=== PATIENT | male | born 1980 | race Caucasian/White ===

== ENCOUNTER 2023-05-26 12:13 | Emergency (ER) | payer OTHER, SELFPAY ==
[2023-05-26 12:16] VITALS: BP 130/84; PULSE 83; RESP 14; TEMP 36.9; O2SAT 99
--- NOTE | 2023-05-26 12:47 | ED.PSYCH ---
HPI - Psych <Monique Chatman, DO - Last Filed: 05/28/23 09:24> General Chief Complaint: Psychiatric Symptoms Stated Complaint: bipolar / norberto Time Seen by Provider: 05/26/23 12:47 Source: patient and EMS Mode of arrival: EMS History of Present Illness HPI Narrative: This is a 43-year-old male with reported history of bipolar schizophrenia who has been on medications in the past as recently come to the area with his sister to visit family. He reportedly has had multiple hospitalizations most recently 3-4 weeks ago in [facility]. Patient states he does have a mental health history, he does not feel like it is his mental health that is causing his symptoms today. He denies any active hallucinations, auditory or visual, he denies any thoughts of harming himself or others, he denies any thoughts of killing himself or anyone else. Patient states that he is not sure about what is happening in reality at the moment. He sort of his intermittently smiling and then seems sad but not actively crying. Patient denies any tobacco, occasional alcohol denying any illicit substances currently. Medics were called by sister as he has been acting similar to when he has had mental health issues in the past. Patient is was seen with law enforcement and paramedics locally initially did not wish to transport but ultimately did choose to present. He states that he does not feel like he is requiring any new medication currently. He is denying take any medication right now. He does not feel he is requiring hospitalization currently. Related Data Home Medications Medication Instructions Recorded Confirmed dextroamphetamine-amphetamine ER 1 cap PO BID 05/26/23 05/26/23 30 mg 24hr capsule,extend release (Adderall XR) hydroxyzine pamoate 50 mg capsule 50 mg PO Q6HR PRN Anxiety 05/26/23 05/26/23 lithium carbonate 300 mg capsule 300 mg PO QAM 05/26/23 05/26/23 lithium carbonate 300 mg capsule 450 mg PO BEDTIME 05/26/23 05/26/23 quetiapine 25 mg tablet 25 mg PO BEDTIME 05/26/23 05/26/23 risperidone 4 mg tablet 4 mg PO BEDTIME 05/26/23 05/26/23 trazodone 150 mg tablet 150 mg PO BEDTIME 05/26/23 05/26/23 Allergies Allergy/AdvReac Type Severity Reaction Status Date / Time No Known Drug Allergies Allergy Verified 05/26/23 12:19 Review of Systems <Monique Chatman DO - Last Filed: 05/28/23 09:24> Review of Systems ROS Unobtainable: All systems reviewed & are unremarkable except as noted in HPI and below Patient History <Monique Chatman DO - Last Filed: 05/28/23 09:24> Social History Smoking Status: Unknown if ever smoked Smoking Status: Unknown if ever smoked alcohol intake frequency: 0-2 drinks per day Substance Use Type: unknown Exam <Monique Chatman DO - Last Filed: 05/28/23 09:24> Narrative Exam Narrative: GENERAL: Alert and oriented x three, male in mild distress. Slightly disheveled but clean. HEENT: Head normocephalic, atraumatic, EOMI, pupils reactive, face symmetric, moist mucous membranes NECK: Supple, full range of motion CARDIOVASCULAR: Regular rate and rhythm without murmurs, rubs or gallops. RESPIRATORY: Breath sounds equal bilaterally, no wheezes rales or rhonchi. ABDOMEN: Soft, nontender. Normoactive bowel sounds all 4 quadrants. No guarding or rebound, rigidity, no mass : No CVA tenderness EXTREMITIES: Normal range of motion, no clubbing or edema. Neurovascularly intact NEUROLOGICAL: Cranial nerves II through XII grossly intact. Moving all extremities SKIN: Warm, dry, no petechiae, no rashes or lesions. PSYCH: Patient admits to reality seeming off or altered, denies any active hallucinations denies any thoughts of harming himself or others, new suicidal or homicidal ideation or intent. Initial Vital Signs Initial Vital Signs: Vital Signs Temperature 98.5 F 05/26/23 12:16 Pulse Rate 83 05/26/23 12:16 Respiratory Rate 14 05/26/23 12:16 Blood Pressure 130/84 05/26/23 12:16 Pulse Oximetry 99 05/26/23 12:16 Oxygen Delivery Method Room Air 05/26/23 12:16 <Miguel Angel Key DO - Last Filed: 05/27/23 21:05> Initial Vital Signs Initial Vital Signs: Vital Signs Temperature 98.5 F 05/26/23 12:16 Pulse Rate 83 05/26/23 12:16 Respiratory Rate 14 05/26/23 12:16 Blood Pressure 130/84 05/26/23 12:16 Pulse Oximetry 99 05/26/23 12:16 Oxygen Delivery Method Room Air 05/26/23 12:16 Course <Monique Chatman DO - Last Filed: 05/28/23 09:24> Orders Ordered: Discontinued Medications Olanzapine (Olanzapine Odt 10 Mg Tab) 10 mg PO NOW ONE Stop: 05/27/23 17:20 Last Admin: 05/27/23 17:33 Dose: 10 mg Documented By: MLM Vital Signs Vital signs: Vital Signs - 8 hr 05/27/23 18:35 Pulse Rate 86 Respiratory Rate 18 Blood Pressure 131/81 Pulse Oximetry 99 Oxygen Delivery Method Room Air <Miguel Angel Key, DO - Last Filed: 05/27/23 21:05> Orders Ordered: Discontinued Medications Olanzapine (Olanzapine Odt 10 Mg Tab) 10 mg PO NOW ONE Stop: 05/27/23 17:20 Last Admin: 05/27/23 17:33 Dose: 10 mg Documented By: MLM Vital Signs Vital signs: Vital Signs - 8 hr 05/27/23 18:35 Pulse Rate 86 Respiratory Rate 18 Blood Pressure 131/81 Pulse Oximetry 99 Oxygen Delivery Method Room Air MDM - Psych <Monique Chatman, DO - Last Filed: 05/28/23 09:24> Lab Data 05/26/23 12:40 05/26/23 12:40 Labs: Lab Results 05/26/23 05/26/23 05/26/23 Range/Units 12:40 12:40 12:40 WBC 5.1 (4.5-11.0) X10^3/uL RBC 4.65 (4.5-5.9) X10^6/uL Hgb 14.1 (13.5-17.5) g/dL Hct 40.7 L (41-53) % MCV 87.6 (80-100) fL MCH 30.3 (26-34) PG MCHC 34.6 (30-36) % RDW 12.8 (11.6-14.8) % Plt Count 425 H (150-400) X10^3/uL Neut % (Auto) 56.5 (50-75) % Lymph % (Auto) 29.8 (25-40) % [place] % (Auto) 11.2 (3-14) % Eos % (Auto) 1.7 L (2-4) % Baso % (Auto) 0.8 (0-2) % Neut # (Auto) 2900 (8729-8726) /uL Lymph # (Auto) 1500 (2248-1081) /uL [place] # (Auto) 600 (0-900) /uL Eos # (Auto) 100 (0-450) /uL Baso # (Auto) 0 (0-100) /uL Sodium 137 (137-145) mmol/L Potassium 4.0 (3.4-5.1) mmol/L Chloride 103 (98-107) mmol/L Carbon Dioxide 22 (22-32) mmol/L BUN 13 (9-20) mg/dL Creatinine 1.07 (0.66-1.25) mg/dL Estimated GFR > 60 (>60) mL/min BUN/Creatinine Ratio 12.1 (6-22) Glucose 104 H (70-100) mg/dL Calcium 9.1 (8.4-10.2) mg/dL Magnesium (1.6-2.3) mg/dL Total Bilirubin 1.0 (0.2-1.3) mg/dL AST 27 (17-59) IU/L ALT 23 (<50) IU/L Alkaline Phosphatase 75 (38-126) U/L Total Protein 7.1 (6.3-8.2) g/dL Albumin 4.4 (3.5-5.0) g/dL Globulin 2.7 (1.7-4.1) g/dL Albumin/Globulin Ratio 1.6 (1.0-2.8) TSH 0.882 (0.47-4.68) uIU/mL Free T4 1.97 (0.78-2.19) ng/dL Urine Color Urine Appearance Urine pH (4.5-8.0) Ur Specific [place] (1.000-1.035) Urine Protein (Negative) Urine Glucose (UA) (Negative) g/dL Urine Ketones (NEGATIVE) Urine Occult Blood (Negative) Urine Nitrate (Negative) Urine Bilirubin (NEGATIVE) Ur Bilirubin Confirm (Negative) Urine Urobilinogen (0.2) E.U./dL Ur Leukocyte Esterase (NEGATIVE) Urine RBC (0-5/HPF) Urine WBC (0-5/HPF) Ur Squamous Epith Cells (0-5/HPF) Calcium Oxalate Crystal Urine Bacteria (None) Urine Mucus (Negative) Ur Culture Indicated? Salicylates < 1.0 (<20) mg/dL U Opiates 300ng/mL cut (Negative) Ur Oxycodone Screen (Negative) Urine Methadone Screen (Negative) Acetaminophen < 10 (10-30) ug/mL Ur Barbiturates Screen (Negative) U Tricyclic Antidepress (Negative) Ur Phencyclidine Scrn (Negative) Ur Amphetamines Screen (Negative) U Methamphetamines Scrn (Negative) Ur MDMA Scrn (Ecstasy) (Negative) U Benzodiazepines Scrn (Negative) [place] < 0.2 L (0.6-1.2) mmol/L Urine Cocaine Screen (Negative) U Marijuana (THC) Screen (Negative) Ethyl Alcohol < 10 ( - 10) mg/dL SARS-CoV-2 (PCR) (Negative) 05/26/23 05/26/23 05/26/23 Range/Units 12:40 12:42 17:42 WBC (4.5-11.0) X10^3/uL RBC (4.5-5.9) X10^6/uL Hgb (13.5-17.5) g/dL Hct (41-53) % MCV (80-100) fL MCH (26-34) PG MCHC (30-36) % RDW (11.6-14.8) % Plt Count (150-400) X10^3/uL Neut % (Auto) (50-75) % Lymph % (Auto) (25-40) % [place] % (Auto) (3-14) % Eos % (Auto) (2-4) % Baso % (Auto) (0-2) % Neut # (Auto) (2941-2309) /uL Lymph # (Auto) (0887-7325) /uL [place] # (Auto) (0-900) /uL Eos # (Auto) (0-450) /uL Baso # (Auto) (0-100) /uL Sodium (137-145) mmol/L Potassium (3.4-5.1) mmol/L Chloride (98-107) mmol/L Carbon Dioxide (22-32) mmol/L BUN (9-20) mg/dL Creatinine (0.66-1.25) mg/dL Estimated GFR (>60) mL/min BUN/Creatinine Ratio (6-22) Glucose (70-100) mg/dL Calcium (8.4-10.2) mg/dL Magnesium 2.3 (1.6-2.3) mg/dL Total Bilirubin (0.2-1.3) mg/dL AST (17-59) IU/L ALT (<50) IU/L Alkaline Phosphatase (38-126) U/L Total Protein (6.3-8.2) g/dL Albumin (3.5-5.0) g/dL Globulin (1.7-4.1) g/dL Albumin/Globulin Ratio (1.0-2.8) TSH (0.47-4.68) uIU/mL Free T4 (0.78-2.19) ng/dL Urine Color Urine Appearance Urine pH (4.5-8.0) Ur Specific [place] (1.000-1.035) Urine Protein (Negative) Urine Glucose (UA) (Negative) g/dL Urine Ketones (NEGATIVE) Urine Occult Blood (Negative) Urine Nitrate (Negative) Urine Bilirubin (NEGATIVE) Ur Bilirubin Confirm (Negative) Urine Urobilinogen (0.2) E.U./dL Ur Leukocyte Esterase (NEGATIVE) Urine RBC (0-5/HPF) Urine WBC (0-5/HPF) Ur Squamous Epith Cells (0-5/HPF) Calcium Oxalate Crystal Urine Bacteria (None) Urine Mucus (Negative) Ur Culture Indicated? Salicylates (<20) mg/dL U Opiates 300ng/mL cut Negative (Negative) Ur Oxycodone Screen Negative (Negative) Urine Methadone Screen Negative (Negative) Acetaminophen (10-30) ug/mL Ur Barbiturates Screen Negative (Negative) U Tricyclic Antidepress Negative (Negative) Ur Phencyclidine Scrn Negative (Negative) Ur Amphetamines Screen Positive H (Negative) U Methamphetamines Scrn Negative (Negative) Ur MDMA Scrn (Ecstasy) Negative (Negative) U Benzodiazepines Scrn Negative (Negative) [place] (0.6-1.2) mmol/L Urine Cocaine Screen Negative (Negative) U Marijuana (THC) Screen Negative (Negative) Ethyl Alcohol ( - 10) mg/dL SARS-CoV-2 (PCR) Negative (Negative) 05/26/23 Range/Units 17:42 WBC (4.5-11.0) X10^3/uL RBC (4.5-5.9) X10^6/uL Hgb (13.5-17.5) g/dL Hct (41-53) % MCV (80-100) fL MCH (26-34) PG MCHC (30-36) % RDW (11.6-14.8) % Plt Count (150-400) X10^3/uL Neut % (Auto) (50-75) % Lymph % (Auto) (25-40) % [place] % (Auto) (3-14) % Eos % (Auto) (2-4) % Baso % (Auto) (0-2) % Neut # (Auto) (9458-9274) /uL Lymph # (Auto) (4096-5690) /uL [place] # (Auto) (0-900) /uL Eos # (Auto) (0-450) /uL Baso # (Auto) (0-100) /uL Sodium (137-145) mmol/L Potassium (3.4-5.1) mmol/L Chloride (98-107) mmol/L Carbon Dioxide (22-32) mmol/L BUN (9-20) mg/dL Creatinine (0.66-1.25) mg/dL Estimated GFR (>60) mL/min BUN/Creatinine Ratio (6-22) Glucose (70-100) mg/dL Calcium (8.4-10.2) mg/dL Magnesium (1.6-2.3) mg/dL Total Bilirubin (0.2-1.3) mg/dL AST (17-59) IU/L ALT (<50) IU/L Alkaline Phosphatase (38-126) U/L Total Protein (6.3-8.2) g/dL Albumin (3.5-5.0) g/dL Globulin (1.7-4.1) g/dL Albumin/Globulin Ratio (1.0-2.8) TSH (0.47-4.68) uIU/mL Free T4 (0.78-2.19) ng/dL Urine Color Yellow Urine Appearance Clear Urine pH 6.0 (4.5-8.0) Ur Specific [place] 1.025 (1.000-1.035) Urine Protein Trace H (Negative) Urine Glucose (UA) Negative (Negative) g/dL Urine Ketones 2+ H (NEGATIVE) Urine Occult Blood Negative (Negative) Urine Nitrate Negative (Negative) Urine Bilirubin 2+ H (NEGATIVE) Ur Bilirubin Confirm Negative (Negative) Urine Urobilinogen 2.0 H (0.2) E.U./dL Ur Leukocyte Esterase Negative (NEGATIVE) Urine RBC None seen (0-5/HPF) Urine WBC None seen (0-5/HPF) Ur Squamous Epith Cells None seen (0-5/HPF) Calcium Oxalate Crystal Few H Urine Bacteria None seen (None) Urine Mucus 1+ H (Negative) Ur Culture Indicated? Cult not indicated Salicylates (<20) mg/dL U Opiates 300ng/mL cut (Negative) Ur Oxycodone Screen (Negative) Urine Methadone Screen (Negative) Acetaminophen (10-30) ug/mL Ur Barbiturates Screen (Negative) U Tricyclic Antidepress (Negative) Ur Phencyclidine Scrn (Negative) Ur Amphetamines Screen (Negative) U Methamphetamines Scrn (Negative) Ur MDMA Scrn (Ecstasy) (Negative) U Benzodiazepines Scrn (Negative) [place] (0.6-1.2) mmol/L Urine Cocaine Screen (Negative) U Marijuana (THC) Screen (Negative) Ethyl Alcohol ( - 10) mg/dL SARS-CoV-2 (PCR) (Negative) MDM Narrative Medical decision making narrative: Patient's labs show no acute changes or cause for his symptoms beyond his reported psychiatric history. Patient has not given urine sample yet. He has been sleeping in the department during his stay. No suicidal or homicidal ideation but question about whether patient's gravely disabled. Patient sister has been in touch regarding symptoms. No TO performed by law enforcement. Patient came voluntarily with EMS. Patient signed out to Dr. Key for re-evaluation and final disposition. Dr key: Received turned over. Review patient's history and physical and workup up to this point. The patient is medically cleared. Patient has been calm all night. Has been sleeping all night. The DCR has been involved in determined that the patient does meet criteria for involuntary admission to the hospital based on grave disability however there is no bed availability. The DCR apparently had an extensive discussion with the patient's sister. I did not specifically talk with her. The message was relayed to me that the sister states that the patient has ?manic? episodes every 5-6 months. The difference with this wound is that he had a episode similar to this approximately 1 month ago. Apparently he is had extensive admission to the hospital in several different states for norberto. Unsure as to whether not the patient is taking any of his medications. According to the DCR patient's sister is uncomfortable taking the patient home. He lives with his sister in another state. They are visiting the local area visiting the patient's father at a local care facility. Plan will be is to continue to observe the patient here in the emergency department. We will re-evaluate this morning once he wakes up to see if his symptoms have changed at all. Here turned over to Dr. Chatman for continued evaluation. 05/27/23 [place]: Patient received turnover from Dr. Key. Patient was calm overnight sleeping through most of the day. Per sitter patient had a few times when he would wake up and talk to himself but was very calm. DCR did evaluate felt patient met criteria for gravely disabled but had to perform a walk away as there was no bed availability. Repeat consultation would be at 11:00 p.m. unless are [facility] is able to find a bed in the meantime. Patient's urine sample did show amphetamines there is reported history of Adderall prescription although reportedly also not taking this medication per family. Patient had not been able to give me this information when I saw him. Patient accepted at [facility] for involuntary placement. ROSEANNA Ortiz dispatched and TO'd. Patient given dose of oral medication prior to transport at facilities request. <Miguel Angel Key, DO - Last Filed: 05/27/23 21:05> Lab Data Labs: Lab Results 05/26/23 05/26/23 05/26/23 Range/Units 12:40 12:40 12:40 WBC 5.1 (4.5-11.0) X10^3/uL RBC 4.65 (4.5-5.9) X10^6/uL Hgb 14.1 (13.5-17.5) g/dL Hct 40.7 L (41-53) % MCV 87.6 (80-100) fL MCH 30.3 (26-34) PG MCHC 34.6 (30-36) % RDW 12.8 (11.6-14.8) % Plt Count 425 H (150-400) X10^3/uL Neut % (Auto) 56.5 (50-75) % Lymph % (Auto) 29.8 (25-40) % [place] % (Auto) 11.2 (3-14) % Eos % (Auto) 1.7 L (2-4) % Baso % (Auto) 0.8 (0-2) % Neut # (Auto) 2900 (4055-2147) /uL Lymph # (Auto) 1500 (9637-8911) /uL [place] # (Auto) 600 (0-900) /uL Eos # (Auto) 100 (0-450) /uL Baso # (Auto) 0 (0-100) /uL Sodium 137 (137-145) mmol/L Potassium 4.0 (3.4-5.1) mmol/L Chloride 103 (98-107) mmol/L Carbon Dioxide 22 (22-32) mmol/L BUN 13 (9-20) mg/dL Creatinine 1.07 (0.66-1.25) mg/dL Estimated GFR > 60 (>60) mL/min BUN/Creatinine Ratio 12.1 (6-22) Glucose 104 H (70-100) mg/dL Calcium 9.1 (8.4-10.2) mg/dL Magnesium (1.6-2.3) mg/dL Total Bilirubin 1.0 (0.2-1.3) mg/dL AST 27 (17-59) IU/L ALT 23 (<50) IU/L Alkaline Phosphatase 75 (38-126) U/L Total Protein 7.1 (6.3-8.2) g/dL Albumin 4.4 (3.5-5.0) g/dL Globulin 2.7 (1.7-4.1) g/dL Albumin/Globulin Ratio 1.6 (1.0-2.8) TSH 0.882 (0.47-4.68) uIU/mL Free T4 1.97 (0.78-2.19) ng/dL Urine Color Urine Appearance Urine pH (4.5-8.0) Ur Specific [place] (1.000-1.035) Urine Protein (Negative) Urine Glucose (UA) (Negative) g/dL Urine Ketones (NEGATIVE) Urine Occult Blood (Negative) Urine Nitrate (Negative) Urine Bilirubin (NEGATIVE) Ur Bilirubin Confirm (Negative) Urine Urobilinogen (0.2) E.U./dL Ur Leukocyte Esterase (NEGATIVE) Urine RBC (0-5/HPF) Urine WBC (0-5/HPF) Ur Squamous Epith Cells (0-5/HPF) Calcium Oxalate Crystal Urine Bacteria (None) Urine Mucus (Negative) Ur Culture Indicated? Salicylates < 1.0 (<20) mg/dL U Opiates 300ng/mL cut (Negative) Ur Oxycodone Screen (Negative) Urine Methadone Screen (Negative) Acetaminophen < 10 (10-30) ug/mL Ur Barbiturates Screen (Negative) U Tricyclic Antidepress (Negative) Ur Phencyclidine Scrn (Negative) Ur Amphetamines Screen (Negative) U Methamphetamines Scrn (Negative) Ur MDMA Scrn (Ecstasy) (Negative) U Benzodiazepines Scrn (Negative) [place] < 0.2 L (0.6-1.2) mmol/L Urine Cocaine Screen (Negative) U Marijuana (THC) Screen (Negative) Ethyl Alcohol < 10 ( - 10) mg/dL SARS-CoV-2 (PCR) (Negative) 05/26/23 05/26/23 05/26/23 Range/Units 12:40 12:42 17:42 WBC (4.5-11.0) X10^3/uL RBC (4.5-5.9) X10^6/uL Hgb (13.5-17.5) g/dL Hct (41-53) % MCV (80-100) fL MCH (26-34) PG MCHC (30-36) % RDW (11.6-14.8) % Plt Count (150-400) X10^3/uL Neut % (Auto) (50-75) % Lymph % (Auto) (25-40) % [place] % (Auto) (3-14) % Eos % (Auto) (2-4) % Baso % (Auto) (0-2) % Neut # (Auto) (1005-8158) /uL Lymph # (Auto) (0260-0100) /uL [place] # (Auto) (0-900) /uL Eos # (Auto) (0-450) /uL Baso # (Auto) (0-100) /uL Sodium (137-145) mmol/L Potassium (3.4-5.1) mmol/L Chloride (98-107) mmol/L Carbon Dioxide (22-32) mmol/L BUN (9-20) mg/dL Creatinine (0.66-1.25) mg/dL Estimated GFR (>60) mL/min BUN/Creatinine Ratio (6-22) Glucose (70-100) mg/dL Calcium (8.4-10.2) mg/dL Magnesium 2.3 (1.6-2.3) mg/dL Total Bilirubin (0.2-1.3) mg/dL AST (17-59) IU/L ALT (<50) IU/L Alkaline Phosphatase (38-126) U/L Total Protein (6.3-8.2) g/dL Albumin (3.5-5.0) g/dL Globulin (1.7-4.1) g/dL Albumin/Globulin Ratio (1.0-2.8) TSH (0.47-4.68) uIU/mL Free T4 (0.78-2.19) ng/dL Urine Color Urine Appearance Urine pH (4.5-8.0) Ur Specific [place] (1.000-1.035) Urine Protein (Negative) Urine Glucose (UA) (Negative) g/dL Urine Ketones (NEGATIVE) Urine Occult Blood (Negative) Urine Nitrate (Negative) Urine Bilirubin (NEGATIVE) Ur Bilirubin Confirm (Negative) Urine Urobilinogen (0.2) E.U./dL Ur Leukocyte Esterase (NEGATIVE) Urine RBC (0-5/HPF) Urine WBC (0-5/HPF) Ur Squamous Epith Cells (0-5/HPF) Calcium Oxalate Crystal Urine Bacteria (None) Urine Mucus (Negative) Ur Culture Indicated? Salicylates (<20) mg/dL U Opiates 300ng/mL cut Negative (Negative) Ur Oxycodone Screen Negative (Negative) Urine Methadone Screen Negative (Negative) Acetaminophen (10-30) ug/mL Ur Barbiturates Screen Negative (Negative) U Tricyclic Antidepress Negative (Negative) Ur Phencyclidine Scrn Negative (Negative) Ur Amphetamines Screen Positive H (Negative) U Methamphetamines Scrn Negative (Negative) Ur MDMA Scrn (Ecstasy) Negative (Negative) U Benzodiazepines Scrn Negative (Negative) [place] (0.6-1.2) mmol/L Urine Cocaine Screen Negative (Negative) U Marijuana (THC) Screen Negative (Negative) Ethyl Alcohol ( - 10) mg/dL SARS-CoV-2 (PCR) Negative (Negative) 05/26/23 Range/Units 17:42 WBC (4.5-11.0) X10^3/uL RBC (4.5-5.9) X10^6/uL Hgb (13.5-17.5) g/dL Hct (41-53) % MCV (80-100) fL MCH (26-34) PG MCHC (30-36) % RDW (11.6-14.8) % Plt Count (150-400) X10^3/uL Neut % (Auto) (50-75) % Lymph % (Auto) (25-40) % [place] % (Auto) (3-14) % Eos % (Auto) (2-4) % Baso % (Auto) (0-2) % Neut # (Auto) (1665-4153) /uL Lymph # (Auto) (1139-7311) /uL [place] # (Auto) (0-900) /uL Eos # (Auto) (0-450) /uL Baso # (Auto) (0-100) /uL Sodium (137-145) mmol/L Potassium (3.4-5.1) mmol/L Chloride (98-107) mmol/L Carbon Dioxide (22-32) mmol/L BUN (9-20) mg/dL Creatinine (0.66-1.25) mg/dL Estimated GFR (>60) mL/min BUN/Creatinine Ratio (6-22) Glucose (70-100) mg/dL Calcium (8.4-10.2) mg/dL Magnesium (1.6-2.3) mg/dL Total Bilirubin (0.2-1.3) mg/dL AST (17-59) IU/L ALT (<50) IU/L Alkaline Phosphatase (38-126) U/L Total Protein (6.3-8.2) g/dL Albumin (3.5-5.0) g/dL Globulin (1.7-4.1) g/dL Albumin/Globulin Ratio (1.0-2.8) TSH (0.47-4.68) uIU/mL Free T4 (0.78-2.19) ng/dL Urine Color Yellow Urine Appearance Clear Urine pH 6.0 (4.5-8.0) Ur Specific [place] 1.025 (1.000-1.035) Urine Protein Trace H (Negative) Urine Glucose (UA) Negative (Negative) g/dL Urine Ketones 2+ H (NEGATIVE) Urine Occult Blood Negative (Negative) Urine Nitrate Negative (Negative) Urine Bilirubin 2+ H (NEGATIVE) Ur Bilirubin Confirm Negative (Negative) Urine Urobilinogen 2.0 H (0.2) E.U./dL Ur Leukocyte Esterase Negative (NEGATIVE) Urine RBC None seen (0-5/HPF) Urine WBC None seen (0-5/HPF) Ur Squamous Epith Cells None seen (0-5/HPF) Calcium Oxalate Crystal Few H Urine Bacteria None seen (None) Urine Mucus 1+ H (Negative) Ur Culture Indicated? Cult not indicated Salicylates (<20) mg/dL U Opiates 300ng/mL cut (Negative) Ur Oxycodone Screen (Negative) Urine Methadone Screen (Negative) Acetaminophen (10-30) ug/mL Ur Barbiturates Screen (Negative) U Tricyclic Antidepress (Negative) Ur Phencyclidine Scrn (Negative) Ur Amphetamines Screen (Negative) U Methamphetamines Scrn (Negative) Ur MDMA Scrn (Ecstasy) (Negative) U Benzodiazepines Scrn (Negative) [place] (0.6-1.2) mmol/L Urine Cocaine Screen (Negative) U Marijuana (THC) Screen (Negative) Ethyl Alcohol ( - 10) mg/dL SARS-CoV-2 (PCR) (Negative) [facility] Narrative Medical decision making narrative: Patient's labs show no acute changes or cause for his symptoms beyond his reported psychiatric history. Patient has not given urine sample yet. He has been sleeping in the department during his stay. No suicidal or homicidal ideation but question about whether patient's gravely disabled. Patient sister has been in touch regarding symptoms. No TO performed by law enforcement. Patient came voluntarily with EMS. Patient signed out to Dr. Key for re-evaluation and final disposition. Dr key: Received turned over. Review patient's history and physical and workup up to this point. The patient is medically cleared. Patient has been calm all night. Has been sleeping all night. The DCR has been involved in determined that the patient does meet criteria for involuntary admission to the hospital based on grave disability however there is no bed availability. The DCR apparently had an extensive discussion with the patient's sister. I did not specifically talk with her. The message was relayed to me that the sister states that the patient has ?manic? episodes every 5-6 months. The difference with this wound is that he had a episode similar to this approximately 1 month ago. Apparently he is had extensive admission to the hospital in several different states for norberto. Unsure as to whether not the patient is taking any of his medications. According to the DCR patient's sister is uncomfortable taking the patient home. He lives with his sister in another state. They are visiting the local area visiting the patient's father at a local care facility. Plan will be is to continue to observe the patient here in the emergency department. We will re-evaluate this morning once he wakes up to see if his symptoms have changed at all. Here turned over to Dr. Chatman for continued evaluation. Discharge Plan Departure Patient Disposition: Xfer Psychiatric Hosp Clinical Impression: Acute psychosis Prescriptions: No Action quetiapine 25 mg tablet 25 mg PO BEDTIME Patient Comments: TAKE 1 TABLET BY MOUTH AT BEDTIME risperidone 4 mg tablet 4 mg PO BEDTIME Patient Comments: TAKE 1 TABLET BY MOUTH AT BEDTIME hydroxyzine pamoate 50 mg capsule 50 mg PO [id number] PRN (Reason: Anxiety) Patient Comments: TAKE 1 CAPSULE BY MOUTH EVERY 6 HOURS NEEDED FOR ANXIETY lithium carbonate 300 mg capsule 450 mg PO BEDTIME Patient Comments: TAKE 1 CAPSULE BY MOUTH IN THE MORNING lithium carbonate 300 mg capsule 300 mg PO QAM Patient Comments: TAKE 1 CAPSULE BY MOUTH IN THE MORNING trazodone 150 mg tablet 150 mg PO BEDTIME Patient Comments: TAKE 1 TABLET BY MOUTH ONCE DAILY AT BEDTIME dextroamphetamine-amphetamine [Adderall XR] 30 mg capsule,extended release 24hr 1 cap PO BID Patient Comments: TAKE 1 CAPSULE BY MOUTH TWICE DAILY Referrals: Miscellaneous,Doctor, MD [Primary Care Provider] -
[2023-05-26 12:49] LABS: Add Manual Diff / Slide Review NO; Basophils Absolute Auto 0 /uL (0-100); Basophils Percent Auto 0.8 % (0-2); Eosinophils Absolute Auto 100 /uL (0-450); Eosinophils Percent Auto 1.7 % (2-4); Hematocrit 40.7 % (41-53); Hemoglobin 14.1 g/dL (13.5-17.5); Lymphocytes Absolute Auto 1500 /uL (1100-4500); Lymphocytes Percent Auto 29.8 % (25-40); Mean Corpuscular HGB Conc 34.6 % (30-36); Mean Corpuscular Hemoglobin 30.3 PG (26-34); Mean Corpuscular Volume 87.6 fL (80-100); Monocytes Absolute Auto 600 /uL (0-900); Monocytes Percent Auto 11.2 % (3-14); Neutrophils Absolute Auto 2900 /uL (1500-7000); Neutrophils Percent Auto 56.5 % (50-75); Platelet Count 425 X10^3/uL (150-400); Red Blood Cell Count 4.65 X10^6/uL (4.5-5.9); Red Cell Distribution Width 12.8 % (11.6-14.8); White Blood Cell Count 5.1 X10^3/uL (4.5-11.0)
[2023-05-26 13:01] LABS: Acetaminophen < 10 ug/mL (10-30); Alanine Aminotransferase 23 IU/L (<50); Albumin 4.4 g/dL (3.5-5.0); Albumin Globulin Ratio 1.6 (1.0-2.8); Alkaline Phosphatase 75 U/L (38-126); Aspartate Aminotransferase 27 IU/L (17-59); BUN Creatinine Ratio 12.1 (6-22); Blood Urea Nitrogen 13 mg/dL (9-20); Calcium 9.1 mg/dL (8.4-10.2); Carbon Dioxide 22 mmol/L (22-32); Chloride 103 mmol/L (98-107); Estimated Glomerular Filt Rate > 60 mL/min (>60); Ethanol (ETOH) < 10 mg/dL; Globulin 2.7 g/dL (1.7-4.1); Glucose 104 mg/dL (70-100); HEMOLYSIS < 15 (0-50); Salicylate < 1.0 mg/dL (<20); Sodium 137 mmol/L (137-145); Total Protein 7.1 g/dL (6.3-8.2)
[2023-05-26 13:07] LABS: Lithium < 0.2 mmol/L (0.6-1.2)
[2023-05-26 13:23] LABS: Free T4, Direct Thyroxine 1.97 ng/dL (0.78-2.19)
[2023-05-26 13:37] LABS: Thyroid Stimulating Hormone 0.882 uIU/mL (0.47-4.68)
[2023-05-26 13:39] LABS: COVID19 -Nasal RAPID Negative (Negative)
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
--- NOTE | 2023-05-26 13:46 | PC.NURSE ---
pt lying on stretcher bed. switches between meditating, laughing fits, and silence.
[2023-05-26 19:45] VITALS: BP 115/79; PULSE 105; RESP 18; O2SAT 98
[2023-05-26 19:50] LABS: UR Morphine/Opiate cutoff 300 Negative (Negative); Ur Creatinine Normal (Normal); Ur Specific Gravity Normal (Normal); Urine Amphetamines Positive (Negative); Urine Barbiturates Negative (Negative); Urine Benzodiazepines Negative (Negative); Urine Cocaine Negative (Negative); Urine MDMA Negative (Negative); Urine Methadone Negative (Negative); Urine Methamphetamines Negative (Negative); Urine Oxycodone Negative (Negative); Urine Phencyclidine Negative (Negative); Urine Tetrahydrocannabinol Negative (Negative); Urine Tricyclic Antidepressant Negative (Negative); Urine pH Normal (Normal)
[2023-05-26 19:52] LABS: Appearance Urine UA CLEAR; Bilirubin Urine UA 2+ (NEGATIVE); Color Urine UA YELLOW; Glucose Urine UA NEGATIVE (Negative); Ketones Urine UA 2+ (NEGATIVE); Leukocyte Esterase Urine UA NEGATIVE (NEGATIVE); Nitrite Urine UA NEGATIVE (Negative); Occult Blood Urine UA NEGATIVE (Negative); Protein Urine UA TRACE (Negative); Specific Gravity Urine UA 1.025 (1.000-1.035)
[2023-05-26 20:28] LABS: Bacteria Urine None Seen; Calcium Oxalate Crystals Urine Few; Culture Indicated Urine Cult Not Indicated; Ictotest Urine Negative (Negative); Mucus Urine 1+ (Negative); RBC Urine None Seen (0-5/HPF); Squamous Epithelial Cell Urine None Seen (0-5/HPF); WBC Urine None Seen (0-5/HPF)
[2023-05-26 21:59] LABS: Magnesium 2.3 mg/dL (1.6-2.3)
[2023-05-26 23:45] VITALS: BP 119/79; PULSE 89; RESP 17; O2SAT 100
[2023-05-27 07:48] VITALS: BP 122/78; PULSE 85; RESP 18; O2SAT 99
[2023-05-27 09:51] VITALS: TEMP 36.3
--- NOTE | 2023-05-27 16:15 | CM.SWNOTE ---
SENIOR BIOINFORMATICS SCIENTIST Note SENIOR BIOINFORMATICS SCIENTIST reviews patient with ED provider and charge machine operator. Patient presents to ED via EMS last evening while visiting [place] from [place] with sister to see father at [facility]. Sister reports concerns for patient's manic behaviors, he was missing for a few days and she has concerns he is not taking her medication. Sister endorses concerns with his ability to travel back to [place] at this time. SENIOR BIOINFORMATICS SCIENTIST reviews that patient was a [facility] walkaway last evening. SENIOR BIOINFORMATICS SCIENTIST calls [facility], it is reported they can review patient. SENIOR BIOINFORMATICS SCIENTIST faxes clinicals for review. SENIOR BIOINFORMATICS SCIENTIST calls [facility], it is reported they are at capacity. [facility] calls [facility], it is reported that they are at capacity. SENIOR BIOINFORMATICS SCIENTIST calls [facility] it is reported that they can review patient, SENIOR BIOINFORMATICS SCIENTIST faxes clinicals for review. Marcelo at [facility] reports that they can accept patient upon [facility] documentation. Accepting provider Kellen Enamorado NP. SENIOR BIOINFORMATICS SCIENTIST calls [facility] for dispatch, Angel is assigned. Angel attempts to assess patient via Ipad but patient refuses to speak with Angel. SENIOR BIOINFORMATICS SCIENTIST and ED provider endorse that they believe patient is appropriate for TO placement. Angel endorses that he will write up an TO report. SENIOR BIOINFORMATICS SCIENTIST receives fax from Angel and SENIOR BIOINFORMATICS SCIENTIST assists in serving patient with TO legal documents via Ipad. SENIOR BIOINFORMATICS SCIENTIST reviews this with patient's sister. ED provider signs work note for patient's sister to be on standby while patient is receiving tx in [place]. Plan: Patient to transfer to [facility] this evening for TO placement via EMS JB Roche
--- NOTE | 2023-05-27 17:21 | PC.NURSE ---
PRODUCT SAFETY ASSOCIATE note: This PRODUCT SAFETY ASSOCIATE made a joke to a coworker, patient heard and laughed for much longer (a couple minutes) than necessary. Will alert sr. social media & mobile manager.
[2023-05-27] MEDS: OLANZapine ODT 10 MG TAB PO (17:33)
[2023-05-27 18:35] VITALS: BP 131/81; PULSE 86; RESP 18; O2SAT 99
== END 2023-05-27 18:53 ==
PROVIDERS: Emergency Medicine; Emergency Provider Emergency Medicine
DX: F23 Brief psychotic disorder (principal)
CPT/HCPCS: 36415; 80053; 80178; 80305; 80320; 80329; 81001; 83735; 84439; 84443; 85025; 87635; 93005; 99284; C9803; G0480